=== PATIENT | male | born 1990 | race African-American/Black ===

== ENCOUNTER 2019-02-18 21:05 | Emergency (ER) | payer OTHER ==
[2019-02-18 21:20] VITALS: BP 154/95; PULSE 78; TEMP 98.3; BMI 34.1
[2019-02-18] MEDS ORDERED: IBUPROFEN 400 MG TABLET (FP) PO ONE ×2 (21:21→21:22)
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
== END 2019-02-18 21:31 | disposition home or self-care (01) ==
LOC: JERFT 21:05
DX: S39.012A Strain of muscle, fascia and tendon of lower back, initial encounter (principal); V43.52XA Car driver injured in collision with other type car in traffic accident, initial encounter; Y92.414 Local residential or business street as the place of occurrence of the external cause; Y93.89 Activity, other specified; Y99.8 Other external cause status; Z91.010 Allergy to peanuts
CPT/HCPCS: 99281-25